=== PATIENT | female | born 1945 | race Caucasian/White ===

== ENCOUNTER 2017-01-06 19:41 | Inpatient (IN) | payer MEDICARE, BC ==
[~2017-01-06 19:41] MED LIST: ALLEGRA-D1 TAB.SR .; ASACOL400 MG; AVELOX ABC PAC400 MG; AVELOX400 MG; BACLOFEN10 M1 PO; CALCIUM600 MG; CARAFATE1 G1 PO; CELEBREX200 MG; DANTRIUM50 MG; DANTROLENE SODI50 MG; DIOVAN160 M1 PO; EFFEXOR XR150 M1 PO; EFFEXOR XR150 MG; ESTROBLEND; FLONASE16 GM; HYDROCODON-ACE1 EA16 PO; LIFE-PACK0.8 MG/COM; NEURONTIN100 M1 PO; NORCO 5/325 TAB1 TAB PO; OMEPRAZOLE40 M2 PO; PHENERGAN25 MG; PRAVACHOL40 M1 PO; PREMPRO 0.3 MG/1 TAB; PROTONIX40 MG; QUININE SULFAT325 MG; TRAZODONE50 MG; ULTRAM ER200 MG; VENASTAT300 MG
[2017-01-06] MEDS ORDERED: LEVOCETIRIZINE D5 M1 PO (22:18)
[2017-01-06] MEDS ORDERED: AMITRIPTYLINE H10 M1 PO (22:19)
[2017-01-06] MEDS ORDERED: ACID CONTROL150 M2 PO (22:20)
[2017-01-06] MEDS ORDERED: GLUCOPHAGE500 M3 PO (22:20)
[2017-01-06] MEDS ORDERED: PEPTO-BISM262 MG/11 PO (22:23)
[2017-01-07 00:52] LABS: BLOOD UREA NITROGEN 9 mg/dl (6-24); CARBON DIOXIDE-VENOUS 23 mmol/L (22-32); CHLORIDE 97 mmol/l (96-110); CREATININE 1.06 mg/dl (0.50-1.10); GLUCOSE 105 mg/dL (70-110); SODIUM 130 mmol/L (135-145); eGFR VALUE FOR BLACK 60 mL/Min
[2017-01-07 00:55] LABS: ANION GAP 15 mmol/L (0-20); C-REACTIVE PROTEIN <0.3 mg/dl (0-0.9); POTASSIUM 4.8 mmol/L (3.7-5.1)
[2017-01-07 00:56] LABS: BASO % 0.3 % (0-2); EOS % 3.2 % (0-7); EOSINOPHIL ABSOLUTE COUNT 0.3 tho/cmm (0.0-0.7); HCT-HEMATOCRIT 38.1 % (34.0-49.0); HGB-HEMOGLOBIN 12.6 gm/dl (12.0-15.5); IMMATURE GRANULOCYTES ABSOLUTE 0.03 tho/cmm (0-0.03); IMMATURE GRANULOCYTES PERCENT 0.3 % (0-0.3); LYMPH % 13.3 % (20-45); LYMPH ABSOLUTE COUNT 1.3 tho/cmm (0.8-4.5); MCHC MEAN CORPUSCULAR HGB CONC 33.1 % (32.0-36.0); MCV (MEAN CELL VOLUME) 90.7 fl (82.0-96.0); MEAN PLATELET VOLUME 10.5 cmc (9.4-12.4); MONO % 8.1 % (0-12); MONOCYTE ABSOLUTE COUNT 0.8 tho/cmm (0.0-1.2); NEUTROPHIL ABSOLUTE COUNT 7.5 tho/cmm (1.6-8.0); NEUTROPHIL-AUTOMATED 7.5 tho/cmm (1.6-8.0); NEUTROPHILS % 74.8 % (40-80); PLATELET COUNT 216 tho/cmm (150-450); RED CELL DISTRIBUTION WIDTH 14.5 % (12.4-16.4)
[2017-01-07 01:22] LABS: PROCALCITONIN <0.05 ng/ml (0.05-0.09)
[2017-01-07 06:31] LABS: ANION GAP 10 mmol/L (0-20); BLOOD UREA NITROGEN 9 mg/dl (6-24); CALCIUM 8.8 mg/dl (8.5-10.5); CARBON DIOXIDE-VENOUS 29 mmol/L (22-32); CHLORIDE 100 mmol/l (96-110); CREATININE 1.06 mg/dl (0.50-1.10); GLUCOSE 121 mg/dL (70-110); POTASSIUM 4.2 mmol/L (3.7-5.1); SODIUM 135 mmol/L (135-145); eGFR VALUE FOR BLACK 60 mL/Min
[2017-01-08 11:02] LABS: ANION GAP 12 mmol/L (0-20); BLOOD UREA NITROGEN 10 mg/dl (6-24); CALCIUM 8.9 mg/dl (8.5-10.5); CARBON DIOXIDE-VENOUS 26 mmol/L (22-32); CHLORIDE 100 mmol/l (96-110); CREATININE 1.17 mg/dl (0.50-1.10); GLUCOSE 161 mg/dL (70-110); MAGNESIUM 2.3 mg/dl (1.3-2.6); POTASSIUM 4.3 mmol/L (3.7-5.1); SODIUM 134 mmol/L (135-145); eGFR VALUE FOR BLACK 54 mL/Min
[2017-01-08 16:27] LABS: ANION GAP 12 mmol/L (0-20); BLOOD UREA NITROGEN 12 mg/dl (6-24); CALCIUM 8.5 mg/dl (8.5-10.5); CARBON DIOXIDE-VENOUS 27 mmol/L (22-32); CHLORIDE 98 mmol/l (96-110); CREATININE 1.03 mg/dl (0.50-1.10); GLUCOSE 119 mg/dL (70-110); MAGNESIUM 2.5 mg/dl (1.3-2.6); POTASSIUM 4.3 mmol/L (3.7-5.1); SODIUM 133 mmol/L (135-145); eGFR VALUE FOR BLACK 62 mL/Min
[2017-05-21] MEDS ORDERED: OYSTER SHELL 51 EAC2 PO (18:47)
[2017-05-21] MEDS ORDERED: FLONASE ALLERG9.9 ML (18:48)
[2017-05-21] MEDS ORDERED: NYAMYC15 GM TP (18:49)
[2017-05-21] MEDS ORDERED: DICLOFENAC SODI50 M1 PO (18:51)
[2017-05-21] MEDS ORDERED: LOTRIMIN AF12 GM TP (18:51)
[2017-05-21] MEDS ORDERED: MYOFLEX60 G1 TP (18:55)
[2017-05-21] MEDS ORDERED: LEG CRAMPS PO (18:56)
[2017-05-21] MEDS ORDERED: ARTIFICIAL TEAR1512 EACH EYE (18:56)
[2017-05-21] MEDS ORDERED: MUPIROCIN22 G2 TP (18:57)
[2017-05-21] MEDS ORDERED: MIRALAX17 G2 PO (19:01)
[2017-05-21] MEDS ORDERED: ZYRTEC10 M7 PO (19:02)
[2017-05-21] MEDS ORDERED: EUCERIN CREME120 G1 TP (19:03)
[2017-05-21] MEDS ORDERED: MUCINEX600 M1 PO (19:05)
[2017-05-21] MEDS ORDERED: COLACE100 M1 PO (19:05)
[2017-05-21] MEDS ORDERED: CULTURELLE1 EAC1 PO (19:07)
[2017-05-25] MEDS ORDERED: CLEOCIN HCL300 M1 PO (11:55)
[2017-05-25] MEDS ORDERED: PERIDEX118 ML SSP (11:55)
== END 2017-01-10 13:25 | DRG 184 ==
LOC: EDMED 19:41 → EMR2 23:05 → 5WF 23:48
PROVIDERS: Family Medicine; Internal Medicine; ADMIT Hospitalist
DX: S22.41XA Multiple fractures of ribs, right side, initial encounter for closed fracture (principal); S27.321A Contusion of lung, unilateral, initial encounter; I69.354 Hemiplegia and hemiparesis following cerebral infarction affecting left non-dominant side; R00.0 Tachycardia, unspecified; K21.9 Gastro-esophageal reflux disease without esophagitis; Z87.11 Personal history of peptic ulcer disease; Z86.718 Personal history of other venous thrombosis and embolism; Z79.01 Long term (current) use of anticoagulants; I10 Essential (primary) hypertension; Z88.0 Allergy status to penicillin; Z91.040 Latex allergy status; W18.09XA Striking against other object with subsequent fall, initial encounter; Y92.018 Other place in single-family (private) house as the place of occurrence of the external cause; R07.89 Other chest pain; E11.9 Type 2 diabetes mellitus without complications; Z79.84 Long term (current) use of oral hypoglycemic drugs; J20.9 Acute bronchitis, unspecified; M85.80 Other specified disorders of bone density and structure, unspecified site